=== PATIENT | male | born 1955 | race Caucasian/White ===

== ENCOUNTER 2018-04-03 10:07 | Day surgery (SDC) | payer OTHER, BC ==
[2018-04-03] MEDS ORDERED: CEFAZOLIN 1 GM/50 ML (PMX) 50 ML IVPB (10:30)
== END 2018-04-11 13:32 | disposition home or self-care (01) ==
LOC: SDS 10:07
DX: N35.8 Other urethral stricture (principal); Z53.8 Procedure and treatment not carried out for other reasons